=== PATIENT | female | born 1965 | race Caucasian/White ===

== ENCOUNTER 2017-09-15 19:39 | Emergency (ER) | payer MEDICAID, SELFPAY ==
[2017-09-15 19:47] VITALS: BP 126/71; PULSE 89; RESP 18; TEMP 37.7; O2SAT 100; BMI 20.6
--- NOTE | 2017-09-15 19:47 | ED.RN ---
private duty rn called for ekg, pulled old ekg's for
[2017-09-15 19:50] VITALS: BP 126/71; PULSE 89; RESP 18; TEMP 36.3; O2SAT 99
--- NOTE | 2017-09-15 19:56 | EKG12_ITS ---
Test Reason : CP Blood Pressure : / mmHG Vent. Rate : 095 BPM Atrial Rate : 095 BPM P-R Int : 166 ms QRS Dur : 088 ms QT Int : 366 ms P-R-T Axes : 005 069 064 degrees QTc Int : 459 ms Normal sinus rhythm Nonspecific T wave abnormality Abnormal ECG Confirmed by GWENDOLYN BEGUM, ABDON ([id number]), purchasing expeditor NARCISA ZAZUETA ([id number] on 09/18/2017 8:44:48 AM Referred By: JOSE F Confirmed By:ABDON SNOW MD
--- NOTE | 2017-09-15 20:43 | ED.RN ---
IV STARTED IN TRIAGE, PT C/O INCREASING TINGLING AND DIZZINESS, PT WAS HYPERVENTILATING AT THAT TIME. EXPLAINED HER SYMPTOMS MAY BE DUE TO HER BREATHING. PT'S SPO2 WAS 100% AT THIS TIME, PT STARTED TO BECOME ANGRY, YELLING SOMETHING IS WRONG WITH ME I NEED TO SEE A DR NOW OR I'LL JUST GO HOME AND . I EXPLAINED TO THE PT THAT IT WAS GOING TO BE A BIT OF WAIT TO GET INTO A ROOM AND SEE A DR, BUT WE HAD STARTED HER CARE IN TRIAGE BETWEEN BLOOD WORK AND ECG. PT STATES THAT ISN'T GOING TO HELP IF I JUST LAY OUT HERE AND JUST . I NEED TO GO OUTSIDE, NO I JUST NEED TO LEAVE. I TRIED TO EXPLAIN AGAIN ABOUT THE ER PROCESS AND HOW I WANTED TO START HER CARE PT AGAIN STATED THAT SHE WAS LEAVING, I D/C'D HER IV PLACED A DRESSING ON IT AND SHE WALKED OFF THE UNIT, STEADY GAIT, WITH VISITOR.
== END 2017-09-15 20:59 | disposition left against medical advice (07) ==
LOC: ED 20:56
PROVIDERS: Emergency Provider Emergency Medicine; Family Provider Family Medicine; PCP Family Medicine
DX: Z53.21 Procedure and treatment not carried out due to patient leaving prior to being seen by health care provider (principal)
CPT/HCPCS: 93005; 99281; A4216

== ENCOUNTER → 2019-11-30 17:07 | Outpatient (CLI) | payer MEDICAID, SELFPAY | PROVIDERS: PCP Family Medicine; Referring Provider Family Medicine; Visit Provider Family Medicine | DX: Z20.828 Contact with and (suspected) exposure to other viral communicable diseases (principal); R06.02 Shortness of breath; J06.9 Acute upper respiratory infection, unspecified | CPT/HCPCS: 87635; C9803; U0003 ==

== ENCOUNTER 2019-12-03 12:33 | Emergency (ER) | payer MEDICAID, SELFPAY ==
[2019-12-03 12:34] VITALS: BP 120/100; PULSE 83; RESP 16; TEMP 35.8; O2SAT 98; BMI 27.4
--- NOTE | 2019-12-03 12:58 | ED.VIS.GEN ---
History of Present Illness Chief Complaint: Substance Abuse Informant: Patient Narrative: 54-year-old female presenting for tox from crack cocaine use. She states he has been using over the last 2 weeks. Prior to this she states he was clean for months by going to [facility]. She is previously detoxed at the [facility] as well. Patient states her last use was 3 AM. She has slept since then. Patient is alert and oriented x3 and she does not have any homicidal or suicidal ideation. She denies use of any other drugs or alcohol. - Past Medical History (1) Cocaine abuse Status: Acute Past Medical History - Allergies and Home Meds Allergies/Adverse Reactions: Allergies bacitracin [From Neosporin ([id number])] Allergy (Verified 12/03/19 13:36) Rash bacitracin zinc [From Neosporin ([id number])] Allergy (Verified 12/03/19 13:36) Rash neomycin sulfate [From Neosporin ([id number])] Allergy (Verified 12/03/19 13:36) Rash polymyxin B [From Neosporin ([id number])] Allergy (Verified 12/03/19 13:36) Rash Primary Care Physician: Philip Donald III, MD [Primary Care Provider] - Prior records reviewed: No Past Medical History: - - Reviewed and problem list Surgical History: noncontributory Lives: Alone Smoking Status: Current every day smoker Alcohol: None Drugs: Cocaine Review of Systems General: Denies: Chills, Fever, Sweats Eyes: Denies: Visual changes - bilaterally, Diplopia ENT: Reports: Bilateral ear pain Cardiovascular: Denies: Chest pain, Palpitations Respiratory: Denies: Dyspnea, Cough, Dyspnea on exertion Gastrointestinal: Denies: Abdominal pain, Nausea, Vomiting, Diarrhea, Melena, Hematochezia Genitourinary: Denies: Dysuria, Hematuria, Frequency Musculoskeletal: Denies: Back pain, Extremity Pain Skin: Denies: Rash, Wounds Neurological: Denies: Headache, Weakness, Numbness Psych: Denies: Depression, Anxiety, Suicidal thoughts, Suicidal ideations Physical Exam Vital Signs/Narrative: Vital Signs Temp Pulse Resp BP Pulse Ox 12/03/19 12:34 96.5 F L 83 16 120/100 H 98 General: Well nourished, No Acute Distress Head: Normocephalic, Atraumatic Eyes: Perrl, EOMI ENT: Moist mucous membranes, No rhinorrhea Cardiovascular: Regular rate, Regular rhythm Respiratory: No distress, CTA bilaterally Skin: Normal color, No rash Neurological: Alert, Oriented x3, Cranial nerves II-XII grossly intact Psychological: Normal affect, Normal Mood Diagnostic/Tx/Re-eval - Medical Decision Making Patient presented for detox from crack cocaine use. She states he was previously at [facility]. She was unable to get a hold of them today. I did discuss the patient with the hospitalist and was told he do not have the facilities to detox somebody from crack cocaine. This was discussed with the patient who became angry. I did encourage her to follow-up with her previous counselor and to abstain from using crack cocaine. Patient stable for discharge at this time. Impression: 1. History of crack cocaine abuse ED Disposition - Plan for ED Patient: Disposition: Home or Assisted Living Instructions: ED Abuse Cocaine and Crack Referrals: Philip Donald III, MD [Primary Care Provider] -
== END 2019-12-03 13:47 | disposition home or self-care (01) ==
PROVIDERS: Emergency Provider Student in an Organized Health Care Education/Training Program; PCP Family Medicine
DX: F14.10 Cocaine abuse, uncomplicated (principal); F17.200 Nicotine dependence, unspecified, uncomplicated
CPT/HCPCS: 99282